=== PATIENT | female | born 1985 | race Two or more races ===

== ENCOUNTER 2023-07-18 11:10 | Outpatient (CLI) | payer OTHER | END 2023-07-18 11:48 | disposition home or self-care (01) | LOC: RAD 11:10 | DX: M99.01 Segmental and somatic dysfunction of cervical region (principal); M99.02 Segmental and somatic dysfunction of thoracic region; M99.03 Segmental and somatic dysfunction of lumbar region; M99.04 Segmental and somatic dysfunction of sacral region; M99.05 Segmental and somatic dysfunction of pelvic region ==

== ENCOUNTER 2024-08-27 13:50 | Emergency (ER) | payer OTHER ==
[~2024-08-27] VITALS: Ht 160 cm; Wt 68.0 kg
[2024-08-27] MEDS ORDERED: 0.9 % SODIUM CHLORIDE 1,000 ML IV STA (17:36)
[2024-08-27 18:22] LABS: HEMOGLOBIN 13.6 g/dL (12.0-15.00); MEAN CELL VOLUME 86.2 fL (80.00-100.00); MEAN CORPUSCULAR HGB CONC 34.8 g/dl (32.0-36.0); PLATELET COUNT 226 K/uL (150-450); RED BLOOD COUNT 4.53 M/uL (4.00-6.00); RED CELL DISTRIBUTION WIDTH 13.8 % (11.5-14.5)
[2024-08-27 18:42] LABS: INR 0.98; PARTIAL THROMBOPLASTIN TIME 27.1 SECONDS (22.0-34.0); PROTHROMBIN TIME 10.7 SECONDS (9.0-11.5)
[2024-08-27 18:50] LABS: ALBUMIN 3.6 gm/dL (3.4-5.0); BILIRUBIN TOTAL 0.79 mg/dL (0.3-1.2); CALCIUM 9.1 mg/dL (8.5-10.1); CREATININE SERUM 0.66 mg/dL (0.55-1.02); GFR 101.33; GLOBULINA 3.7 G/DL (2.4-3.5); POTASSIUM 3.84 mEq/L (3.5-5.1); TOTAL PROTEIN 7.3 gm/dL (6.4-8.2)
== END 2024-08-27 19:44 | disposition home or self-care (01) ==
LOC: ER 13:51
DX: O20.8 Other hemorrhage in early pregnancy (principal); Z88.6 Allergy status to analgesic agent; Z3A.01 Less than 8 weeks gestation of pregnancy